=== PATIENT | female | born 1980 | race African-American/Black ===

== ENCOUNTER 2020-08-29 14:49 | Emergency (ER) | payer OTHER ==
[2020-08-30 10:21] LABS: SARS-CoV-2 NAA Not Detected (Not Detected)
== END 2020-08-29 15:44 | disposition home or self-care (01) ==
LOC: JVIRT 14:49
DX: Z11.52 Encounter for screening for COVID-19 (principal)
CPT/HCPCS: C9803; G2251-GT; Q3014-GT; U0003; U0005

== ENCOUNTER 2022-05-04 00:45 | Inpatient (IN) | payer OTHER ==
[2022-05-04 00:59] VITALS: BMI 36.3
[2022-05-04] MEDS ORDERED: MAG HYDROX/AL HYDROX/SIMETH 30 ML UNIT-DOSE CUP PO ONE (01:07)
[2022-05-04] MEDS ORDERED: FAMOTIDINE 20 MG TABLET PO ONE (01:07)
[2022-05-04] MEDS ORDERED: ASPIRIN 325 MG TABLET PO ONE (01:08)
[2022-05-04] MEDS ORDERED: MAG HYDROX/AL HYDROX/SIMETH 30 ML UNIT-DOSE CUP ONE (01:22)
[2022-05-04] MEDS ORDERED: ASPIRIN 325 MG TABLET ONE (01:22)
[2022-05-04] MEDS ORDERED: FAMOTIDINE 20 MG TABLET ONE (01:22)
[2022-05-04 02:29] LABS: BASO % 0.3 % (0-2.0); EOS % 2.5 % (0-4.5); HEMATOCRIT 39.2 % (32.4-45.2); HEMOGLOBIN 12.7 GM/dL (10.7-15.3); LYMPH % 32.8 % (8-40); MCH 26.4 pg (25.7-33.7); MCHC 32.3 g/dl (32.0-36.0); MEAN CELL VOLUME 81.7 fl (80-96); MEAN PLT VOLUME 7.2 fl (7.5-11.1); MONO % 6.8 % (3.8-10.2); NEUT % 57.6 % (42.8-82.8); PLATELET COUNT 396 10^3/uL (134-434); RDW 13.4 % (11.6-15.6); WHITE BLOOD COUNT 8.4 K/mm3 (4.0-10.0)
[2022-05-04 03:04] LABS: ALBUMIN 3.6 g/dl (3.4-5.0); CALCIUM 9.3 mg/dL (8.5-10.1)
[2022-05-04 03:07] LABS: CREATININE 0.8 mg/dL (0.55-1.3)
[2022-05-04 03:08] LABS: BILIRUBIN,TOTAL 0.4 mg/dL (0.2-1)
[2022-05-04 03:09] LABS: TOT PROT 7.8 g/dl (6.4-8.2)
[2022-05-04] MEDS ORDERED: DOCUSATE SODIUM 100 MG CAPSULE (FP) PO PRN (04:56)
[2022-05-04 05:42] LABS: MAGNESIUM 1.8 mg/dL (1.8-2.4)
[2022-05-04 05:47] LABS: PHOSPHOROUS 4.5 mg/dL (2.5-4.9)
[2022-05-04] MEDS: SODIUM CHLORIDE 1,000 ML IV SCH (06:07)
[2022-05-04] MEDS: INSULIN SLIDING SCALE (NOVOLOG) 1 VIAL SQ SCH ×4 (07:07→21:16)
[2022-05-04] MEDS ORDERED: ACETAMINOPHEN 1000 MG/100 ML BAG IVPB PRN (07:36)
[2022-05-04 08:59] LABS: HEMATOCRIT 36.7 % (32.4-45.2); HEMOGLOBIN 12.5 G/dL (10.7-15.3); MCHC 34.1 g/dl (32.0-36.0); MEAN CELL VOLUME 81.9 fl (80-96); MEAN PLT VOLUME 7.5 fl (7.5-11.1); PLATELET COUNT 342.5 10^3/uL (134-434); RBC 4.48 10^6/uL (3.60-5.2); RDW 14.6 % (11.6-15.6); WHITE BLOOD COUNT 9.3 10^3/uL (4.0-10.8)
[2022-05-04] MEDS: PANTOPRAZOLE SODIUM 40 MG VIAL IVPUSH SCH (09:30)
[2022-05-04] MEDS: VERAPAMIL HCL 240 MG E.R. TABLET PO SCH (09:30)
[2022-05-04 09:38] LABS: ACTIVATED PTT 30.8 SECONDS (25.2-36.5); INR 1.04 (0.83-1.09)
[2022-05-04] MEDS ORDERED: MAG HYDROX/AL HYDROX/SIMETH 30 ML UNIT-DOSE CUP PO PRN (09:55)
[2022-05-04] MEDS: ENOXAPARIN NA (PORCINE) 40 MG/0.4 ML DISP.SYRIN SQ SCH (10:30)
[2022-05-04 10:36] LABS: ALBUMIN 3.7 g/dl (3.4-5.0); BILIRUBIN,TOTAL 0.7 mg/dl (0.2-1); CALCIUM 8.9 mg/dl (8.5-10); CREATININE 0.7 mg/dl (0.55-1.3); TOT PROT 7.2 g/dl (6.4-8.2)
[2022-05-04] MEDS ORDERED: ATORVASTATIN CA 10 MG TABLET (FP) PO SCH (22:00)
[2022-05-05 00:14] VITALS: RESP 18
[2022-05-05] MEDS: SODIUM CHLORIDE 1,000 ML IV SCH (07:00)
[2022-05-05] MEDS: INSULIN SLIDING SCALE (NOVOLOG) 1 VIAL SQ SCH ×2 (07:07→11:41)
[2022-05-05 09:00] LABS: HEMATOCRIT 35.2 % (32.4-45.2); HEMOGLOBIN 11.6 G/dL (10.7-15.3); MCH 26.8 pg (25.7-33.7); MEAN CELL VOLUME 81.1 fl (80-96); MEAN PLT VOLUME 7.4 fl (7.5-11.1); PLATELET COUNT 334.2 10^3/uL (134-434); RBC 4.34 10^6/uL (3.60-5.2); RDW 14.5 % (11.6-15.6); WHITE BLOOD COUNT 7.1 10^3/uL (4.0-10.8)
[2022-05-05 09:03] LABS: ALBUMIN 3.1 g/dl (3.4-5.0); BILIRUBIN,TOTAL 0.6 mg/dl (0.2-1); CALCIUM 8.2 mg/dl (8.5-10); CREATININE 0.7 mg/dl (0.55-1.3); MAGNESIUM 1.7 mg/dL (1.8-2.4); PHOSPHOROUS 3.4 mg/dl (2.5-4.9); TOT PROT 6.3 g/dl (6.4-8.2)
[2022-05-05 09:20] LABS: PLATELET ESTIMATE ADEQUATE
[2022-05-05] MEDS: VERAPAMIL HCL 240 MG E.R. TABLET PO SCH (09:43)
[2022-05-05] MEDS: PANTOPRAZOLE SODIUM 40 MG VIAL IVPUSH SCH (09:43)
[2022-05-05] MEDS: ENOXAPARIN NA (PORCINE) 40 MG/0.4 ML DISP.SYRIN SQ SCH (09:43)
[2022-05-05 13:27] VITALS: BP 123/71; PULSE 72; TEMP 98.5
== END 2022-05-05 13:28 | disposition home or self-care (01) | DRG 440 ==
LOC: FER 00:45 → FM/S 05:12
PROVIDERS: ADMIT Internal Medicine; ATTEND Internal Medicine
DX: K85.90 Acute pancreatitis without necrosis or infection, unspecified (principal); I10 Essential (primary) hypertension; E11.9 Type 2 diabetes mellitus without complications; E78.5 Hyperlipidemia, unspecified
CPT/HCPCS: 36415; 71046-TC-FY; 80053; 80061; 82787; 82962; 83690; 83735; 84100; 84484; 85025; 85027; 85610; 85730; 93005; 99285-25; C9803-CS; U0003; U0005

== ENCOUNTER 2022-06-29 12:25 | Emergency (ER) | payer OTHER ==
[2022-06-29 13:20] VITALS: BP 155/99; PULSE 96; RESP 20; TEMP 99.9; BMI 36.3
[2022-06-29 15:31] LABS: THROAT:GRP A STREP NOT DETECTED (NOTDETECTED)
== END 2022-06-29 15:47 | disposition home or self-care (01) ==
LOC: FER 12:25
DX: J06.9 Acute upper respiratory infection, unspecified (principal)
CPT/HCPCS: 0241U-QW; 71046-TC-FY; 82962; 87070; 87651; 99284-25

== ENCOUNTER 2023-12-12 22:22 | Emergency (ER) | payer OTHER ==
[2023-12-12 22:30] VITALS: RESP 18; TEMP 98.4; BMI 38.1
[2023-12-13 01:04] VITALS: BP 155/99; PULSE 89
== END 2023-12-12 23:28 | disposition home or self-care (01) ==
LOC: FER 22:22
DX: R05.9 Cough, unspecified (principal); J20.8 Acute bronchitis due to other specified organisms; Z20.822 Contact with and (suspected) exposure to COVID-19
CPT/HCPCS: 0241U-QW; 99283-25